=== PATIENT | female | born 1995 | race Caucasian/White ===

== ENCOUNTER 2020-08-03 13:53 | Inpatient (IN) | payer MEDICAID, OTHER ==
[~2020-08-03] VITALS: Ht 157.5 cm; Wt 54.6 kg
[2020-08-03 14:34] LABS: BASOPHILS % (AUTO) 0.7 % (0.0-2.0); EOSINOPHILS % (AUTO) 5.3 % (1.0-6.0); HEMATOCRIT 39.4 % (36-46); HEMOGLOBIN 12.9 g/dL (12.0-16.0); LYMPHOCYTES # (AUTO) 2.2 K/uL (1.0-4.8); LYMPHOCYTES % (AUTO) 24.4 % (22.0-44.0); MEAN CORPUSCULAR HEMOGLOBIN 29.6 pg (26.0-34.0); MEAN CORPUSCULAR HGB CONC 32.6 G/dL (31.0-37.0); MEAN CORPUSCULAR VOLUME 91 fL (80-100); MONOCYTES # (AUTO) 0.7 K/uL (0.1-1.0); MONOCYTES % (AUTO) 7.6 % (2.0-9.0); NEUTROPHILS # (AUTO) 5.5 K/uL (1.8-7.7); PLATELET COUNT (AUTO) 256 K/uL (150-450); RED BLOOD CELL COUNT(AUTO) 4.34 MIL/uL (4.00-5.20); RED CELL DISTRIBUTION WIDTH 13.4 % (11.5-14.5)
[2020-08-03 14:44] LABS: ANION GAP 9 mmol/L (8-16); CALCIUM, TOTAL 8.6 mg/dL (8.8-10.5); CARBON DIOXIDE 26 mmol/L (22-29); CHLORIDE 108 mmol/L (98-107); CREATININE 0.79 mg/dL (0.60-1.30); GLOMERULAR FILTR. RATE CALC > 60 mL/min (>60); GLUCOSE,RANDOM 79 mg/dL (70-110); POTASSIUM 3.4 mmol/L (3.5-5.1); SODIUM SERUM 143 mmol/L (136-145); UREA NITROGEN, BLOOD 11 mg/dL (7-18)
[2020-08-03 14:59] LABS: ALANINE AMINOTRANSFERASE 16 U/L (12-78); ALBUMIN 3.6 g/dL (3.4-5.0); ALKALINE PHOSPHATASE 56 U/L (46-116); ASPARTATE AMINOTRANSFERASE 11 U/L (15-37); BILIRUBIN,TOTAL 0.2 mg/dL (0.1-1.0); HCG,QUANTITATIVE < 1 mIU/mL (0-6)
[2020-08-03 16:50] LABS: COVID AG,FIA SOURCE NASOPHARYNGEAL
[2020-08-03] MEDS ORDERED: HALOPERIDOL 5 MG TABLET PO PRN (17:00)
[2020-08-03] MEDS ORDERED: ZOLPIDEM TARTRATE 10 MG TABLET PO PRN (17:00)
[2020-08-03] MEDS ORDERED: LORazepam 2 MG TABLET PO PRN (17:00)
[2020-08-03 20:20] VITALS: BP 117/76
[2020-08-04 00:20] VITALS: BP 110/73
[2020-08-04] MEDS ORDERED: INFLUENZA VIRUS VACCINE QVS 2020-21 (6MO+)/PF 60 MCG/0.5 ML SYRINGE IM ONE (06:15)
[2020-08-04 08:14] VITALS: BP 99/65
[2020-08-04 08:26] LABS: CHOL/HDL RATIO 2.3 (3.9-5.7); FREE T4 (FREE THYROXINE) 1.06 ng/dL (0.76-1.46); THYROID STIMULATING HORMONE 0.7 uIU/mL (0.36-3.74)
[2020-08-04] MEDS ORDERED: POTASSIUM CHLORIDE 20 MEQ ER TABLET PO ONE (09:30)
[2020-08-04 16:11] VITALS: BP 102/68
[2020-08-05 00:35] VITALS: BP 110/71
[2020-08-05 08:17] VITALS: BP 114/66
[2020-08-05 16:06] VITALS: BP 104/64
[2020-08-06 00:24] VITALS: BP 109/67
[2020-08-06 08:21] VITALS: BP 112/66
== END 2020-08-06 18:26 | disposition home or self-care (01) | DRG 751 ==
LOC: EMS 13:53 → B3A 17:13
PROVIDERS: ADMIT Psychiatry & Neurology Psychiatry; ATTEND Psychiatry & Neurology Psychiatry
DX: F33.2 Major depressive disorder, recurrent severe without psychotic features (principal); Z20.822 Contact with and (suspected) exposure to COVID-19; F41.9 Anxiety disorder, unspecified; R45.851 Suicidal ideations; E87.6 Hypokalemia; F22 Delusional disorders; G47.00 Insomnia, unspecified; F17.200 Nicotine dependence, unspecified, uncomplicated; K59.00 Constipation, unspecified; F19.10 Other psychoactive substance abuse, uncomplicated; Z71.51 Drug abuse counseling and surveillance of drug abuser; Z71.6 Tobacco abuse counseling; Z91.5 Personal history of self-harm
CPT/HCPCS: 84132; 84439; 84443; 87426; 99285; G0480